=== PATIENT | female | born 1970 | race Caucasian/White ===

== ENCOUNTER 2017-04-10 04:45 | Emergency (ER) | payer MEDICAID ==
[~2017-04-10] VITALS: Ht 162.6 cm; Wt 53.9 kg
[~2017-04-10 04:45] MED LIST: CLIN-73 PO; CYCL5TAB PO; HYDR-3498 PO; IBUP400T22 PO
[2017-04-10 04:51] VITALS: Ht 162.6 cm; Wt 53.9 kg
== END 2017-04-10 08:26 | disposition left against medical advice (07) ==
LOC: FTE 04:45
DX: Z53.21 Procedure and treatment not carried out due to patient leaving prior to being seen by health care provider (principal)

== ENCOUNTER 2017-07-22 11:48 | Emergency (ER) | END 2017-07-22 12:43 | disposition home or self-care (01) ==

== ENCOUNTER 2018-02-25 04:51 | Emergency (ER) | END 2018-02-25 07:06 | disposition home or self-care (01) ==